=== PATIENT | female | born 1985 | race Caucasian/White ===

== ENCOUNTER 2020-10-10 11:23 | Emergency (ER) | payer OTHER, SELFPAY ==
[2020-10-10 11:25] VITALS: BP 134/87; PULSE 88; RESP 15; TEMP 36.3; O2SAT 100
--- NOTE | 2020-10-10 11:56 | ED.GENADULT ---
HPI - General Adult General Chief complaint: Dental/Oral Stated complaint: Tooth Infection, Face Swelling Time Seen by Provider: 10/10/20 11:26 Source: patient Mode of arrival: ambulatory Limitations: no limitations History of Present Illness HPI narrative: Patient presents for evaluation of left-sided facial pain. She states she was seen in urgent care and [place] several days ago and was advised to go to the ER for further evaluation. She received a prescription for amoxicillin. She did not have significant improvement in her symptoms so she returned to the ER at [place] on 10/03/20 received prescriptions for Augmentin, naproxen, hydrocodone. She states she continues to have pain left side of her face, radiating into her left ear. She has a history of tympanostomy tube placement and has a follow up with ENT in the next week. No f/c/n/v. States she has a hx of hysterectomy. Related Data Home Medications Medication Instructions Recorded Confirmed amoxicillin-pot clavulanate 1 tablet PO Q12H 10/10/20 [Augmentin] naproxen 500 mg PO BID 10/10/20 Allergies Allergy/AdvReac Type Severity Reaction Status Date / Time Sulfa (Sulfonamide Allergy Mild HIVES Verified 04/09/18 10:26 Antibiotics) Review of Systems Review of Systems: Narrative: CONSTITUTIONAL: Denies fever, chills, or sweats. EYES: Denies visual changes, redness, or discharge. ENT: Denies rhinorrhea, congestion, sore throat. Reports left-sided dental pain with radiation into the ear CARDIOVASCULAR: Denies chest pain, palpitations, or edema. RESPIRATORY: Denies cough or dyspnea. GASTROINTESTINAL: Denies abdominal pain, nausea, vomiting, or diarrhea. GENITOURINARY: Denies dysuria or hematuria. SKIN: Denies rash or itching. MUSCULOSKELETAL: Denies back pain, joint pain, or myalgia. NEUROLOGIC: Denies headache, numbness, dizziness, or weakness. PSYCHIATRIC: Denies anxiety or depression. [facility] Past Medical History Medical History (Updated 10/10/20 @ 12:02 by Gordon Mckoy, BHAVNA, BETTINA) Recurrent otitis media Surgical History Surgical History History of tympanostomy tube placement Family History Family History Mother No pertinent family history Social History Social History Substance use: never Gender identity (if verbalized by the patient): Female Sexual Orientation (if Verbalized by the Patient): Straight or Heterosexual Spiritual care concerns: No Exam Narrative: Exam Narrative: GENERAL: Well-appearing, well-nourished, and in no acute distress. HEAD: Normocephalic, atraumatic. EYES: PERRLA and EOMI. ENT: Nares clear, no rhinorrhea or epistaxis. Mucous membranes moist. Oropharynx without tonsillar hypertrophy exudate or other lesions. Bilateral TMs pearly mckeon nonbulging. Tooth #18 is fractured there is no visible or palpable abscess present. Left tympanostomy tube is intact NECK: Supple. No adenopathy or masses. No carotid bruits or JVD CHEST: Clear to auscultation. No respiratory distress. No wheezes rales or rhonchi HEART: Regular rate and rhythm. No murmur heard. Normal peripheral pulses. ABDOMEN: Soft, nontender, nondistended, normal active bowel sounds. EXTREMITIES: Normal range of motion. No edema. SKIN: Warm, dry, no rash. NEURO: No focal deficits. Alert and oriented x3. PSYCH: Normal mood and affect. Course Course Emergency Course: This is a 34-year-old female that presented with left-sided dental pain with radiation to the ear. She has been on several courses of antibiotics. Of note on her exam there is no evidence of dental abscess. She does have a fracture of tooth #18. Vital signs were stable. Plans to change antibiotic to clindamycin. She completed her hydrocodone. We will give small quantity of tramadol. Advised continued u
== END 2020-10-10 12:12 | disposition home or self-care (01) ==
PROVIDERS: Emergency Provider Nurse Practitioner
DX: K03.81 Cracked tooth (principal)
CPT/HCPCS: 99283

== ENCOUNTER 2020-10-14 17:39 | Emergency (ER) | payer OTHER, SELFPAY ==
[2020-10-14 18:42] VITALS: BP 124/84; PULSE 83; RESP 16; TEMP 36.4; O2SAT 100
[2020-10-14 20:38] VITALS: BP 104/46; PULSE 89; RESP 16; O2SAT 100
[2020-10-14 20:50] LABS: Basophils Absolute Auto 0.1 K/mm3 (0.0-0.1); Basophils Percent Auto 0.8 % (0.2-1.2); Eosinophils Absolute Auto 0.3 K/mm3 (0-0.3); Eosinophils Percent Auto 2.5 % (0-4.4); Hematocrit 38.5 % (37.0-47.0); Hemoglobin 12.7 g/dL (12.0-15.0); Immature Granulocyte Absolute 0.03 K/mm3 (0.00-0.031); Immature Granulocyte Percent A 0.3 % (0-0.5); Lymphocytes Percent Auto 45.7 % (18.3-44.2); Mean Corpuscular Hemoglobin 31.1 pg (26-34); Mean Corpuscular Volume 94.4 fl (80-100); Mean Platelet Volume 10.4 fl (7.4-10.4); Monocytes Absolute Auto 0.7 K/mm3 (0.1-0.6); Monocytes Percent Auto 6.3 % (2.6-8.5); Neutrophils Percent Auto 44.4 % (45.5-73.1); Platelet Count Result 257 k/mm3 (150-375); Red Blood Count 4.08 M/mm3 (4.2-5.4); Red Cell Distribution Width 13.2 % (11.5-14.5); White Blood Count 11.2 K/mm3 (4.5-10.0)
[2020-10-14 21:02] LABS: Alanine Aminotransferase 11 U/L (4-35); Albumin Level 4.3 g/dL (3.5-5.1); Alkaline Phosphatase 58 U/L (38-126); Anion Gap 5 mmol/L (8-16); Aspartate Amino Transferase 25 U/L (14-36); Bilirubin,Total < 0.1 mg/dL (0.2-1.3); Blood Urea Nitrogen 15 mg/dL (7-17); Carbon Dioxide 29 mmol/L (22-30); Chloride 106 mmol/L (98-107); Estimated CRCL calculation 82 ml/min; Estimated Glomerular Filt Rate > 60; Glucose 94 mg/dL (65-105); Sodium 140 mmol/L (137-145)
[2020-10-14 21:04] LABS: Platelet Estimate Adequate (Adequate)
[2020-10-14 21:05] LABS: Atypical Lymphocytes Present
--- NOTE | 2020-10-14 21:53 | ED.DENTAL ---
HPI - Dental/Oral General Chief complaint: Dental/Oral Stated complaint: dental pain, facial swelling Time Seen by Provider: 10/14/20 21:05 Source: patient Mode of arrival: ambulatory Limitations: no limitations History of Present Illness HPI Narrative: Patient is a 34-year-old female complaining of left lower dental pain accompanied by left facial swelling that started this morning and now has decreased remarkably and almost resolved. Patient states that she has been on 3 rounds of antibiotics due to her dental pain and facial swelling. Patient states that she saw a dentist last week and was told that she needs oral surgeon, states that she has been trying to look for 1 by unable to find one. Patient denies any lip, tongue, throat swelling. Patient denies any dysphagia. Patient currently on clindamycin for her dental infection. Related Data Home Medications Medication Instructions Recorded Confirmed amoxicillin-pot clavulanate 1 tablet PO Q12H 10/10/20 [Augmentin] naproxen 500 mg PO BID 10/10/20 Allergies Allergy/AdvReac Type Severity Reaction Status Date / Time Sulfa (Sulfonamide Allergy Mild HIVES Verified 04/09/18 10:26 Antibiotics) Review of Systems Review of Systems: All systems reviewed & are unremarkable except as noted in HPI and below Constitutional: Constitutional: Denies body ache(s), Denies chills, Denies excessive sweating, Denies fatigue, Denies fever(s), Denies headache(s), Denies lethargy, Denies malaise, Denies weakness and Denies weight loss Eyes: Eyes: Denies blurry vision, Denies change in vision and Denies loss of vision ENT: Denies dizziness, Denies ear discharge, Denies headache(s), Denies lip swelling, Denies epistaxis, Denies nasal congestion, Denies neck pain, Denies throat swelling and Denies tongue swelling Cardiovascular: Cardiovascular: Denies chest pain, Denies chest pain at rest, Denies chest pain with activity, Denies diaphoresis, Denies rapid heart rate, Denies edema, Denies irregular heart rhythm, Denies lightheadedness, Denies palpitations, Denies dyspnea and Denies dyspnea on exertion Respiratory: Respiratory: Denies chest congestion, Denies cough, Denies hemoptysis, Denies dyspnea and Denies dyspnea on exertion Gastrointestinal: Gastrointestinal: Denies abdominal pain, Denies melena, Denies hematochezia, Denies diarrhea, Denies nausea, Denies vomiting and Denies hematemesis Musculoskeletal: Musculoskeletal: Denies abnormal gait, Denies deformity, Denies joint swelling, Denies limited range of motion, Denies neck pain and Denies numbness Neurologic: Denies Abnormal speech present, Denies abnormal gait, Denies confusion, Denies dizziness, Denies headache(s), Denies focal weakness, Denies loss of vision, Denies numbness, Denies Other visual disturbances, Denies Sensory deficit (Neuro) and Denies weakness Psychiatric: Psychiatric: Denies confusion, Denies depression, Denies auditory hallucinations, Denies homicidal ideation and Denies suicidal ideation Endocrine: Endocrine: Denies cold intolerance, Denies excessive sweating, Denies fatigue, Denies heat intolerance and Denies palpitations Hematologic/Lymphatic: Hematologic/Lymphatic: Denies easy bleeding and Denies easy bruising Allergic/Immunologic: Allergic/Immunologic: Denies lip swelling, Denies throat swelling and Denies tongue swelling [facility] Past Medical History Medical History Recurrent otitis media Surgical History Surgical History History of tympanostomy tube placement Family History Family History Mother No pertinent family history Social History Social History Substance use: never Gender identity (if verbalized by the patient): Female Spiritual care concerns: No Exam Const: G
[2020-10-14 22:22] VITALS: BP 118/79; PULSE 84; RESP 16; TEMP 36.7; O2SAT 98
== END 2020-10-14 22:23 | disposition home or self-care (01) ==
PROVIDERS: Emergency Medicine Emergency Medical Services; Emergency Provider Emergency Medicine; PCP Physician Assistant
DX: K04.7 Periapical abscess without sinus (principal)
CPT/HCPCS: 36415; 80053; 85025; 99283

== ENCOUNTER 2021-02-10 14:56 | Emergency (ER) | payer OTHER, SELFPAY ==
--- NOTE | ~2021-02-10 | CT_ITS ---
EXAMINATION: CT brain wo con DATE: 02/10/2021 16:52 INDICATION: Headache. TECHNIQUE: Computed tomography (CT) of the head was performed without intravenous contrast. The mA wa s adjusted according to patient size. Iterative reconstruction technique was employed. The dose-lengt h product was 681.00 mGy-cm. COMPARISON: None FINDINGS: There is no intracranial hemorrhage, acute infarction, or abnormal intracranial mass lesion . The ventricles are normal in size. The orbits are normal. There is mucosal thickening in the parana bev sinuses. The mastoid air cells are normal. IMPRESSION: 1. Normal brain. Reviewed, dictated and finalized at location A. IMPRESSION: 1. Normal brain.
[2021-02-10 16:12] VITALS: BP 116/65; PULSE 79; RESP 20; TEMP 37.4; O2SAT 100
--- NOTE | 2021-02-10 16:49 | ED.HA ---
HPI - Headache General Chief Complaint: Headache <BOBBY Montalvo Last Filed: 02/10/21 18:46> Stated Complaint: HEADACHE [id number] <BOBBY Montalvo Last Filed: 02/10/21 18:46> Time Seen by Provider: 02/10/21 16:20 <BOBBY Montalvo Last Filed: 02/10/21 18:46> Source: patient <BOBBY Montalvo Last Filed: 02/10/21 18:46> Mode of arrival: EMS <BOBBY Montalvo Last Filed: 02/10/21 18:46> Limitations: no limitations <BOBBY Montalvo Last Filed: 02/10/21 18:46> History of Present Illness HPI Narrative: This is a 35 year old female that presents to the ER for headache present x1 week. Reports the headache is frontal and sharp. She has been taking [id number] medications with little relief. Associated with photophobia and vomiting. Denies fever, stiff neck, numbness, or weakness. <BOBBY Montalvo Last Filed: 02/10/21 18:46> Related Data Home Medications: Home Medications Medication Instructions Recorded Confirmed amoxicillin-pot clavulanate 1 tablet PO Q12H 10/10/20 [Augmentin] naproxen 500 mg PO BID 10/10/20 <BOBBY Montalvo Last Filed: 02/10/21 18:46> Allergies/Adverse Reactions: Allergies Allergy/AdvReac Type Severity Reaction Status Date / Time Sulfa (Sulfonamide Allergy Mild HIVES Verified 04/09/18 10:26 Antibiotics) <BOBBY Montalvo Last Filed: 02/10/21 18:46> Review of Systems Review of Systems: CONSTITUTIONAL: Denies fever EYES: Denies visual changes GASTROINTESTINAL: Reports vomiting MUSCULOSKELETAL: Reports myalgia. NEUROLOGIC: Reports headache. Denies numbness, or weakness. <BOBBY Montalvo Last Filed: 02/10/21 18:46> All systems reviewed & are unremarkable except as noted in HPI and below <BOBBY Montalvo Filed: 02/10/21 18:46> [facility] Past Medical History Medical History: Medical History Recurrent otitis media <Barbara Menjivar PA-C - Last Filed: 02/10/21 18:46> Surgical History Surgical History: Surgical History History of tympanostomy tube placement <BOBBY Montalvo Last Filed: 02/10/21 18:46> Family History Family History: Family History Mother No pertinent family history <BOBBY Montalvo Last Filed: 02/10/21 18:46> Social History Social History: Social History Substance use: never Gender identity (if verbalized by the patient): Female Spiritual care concerns: No <BOBBY Montalvo Last Filed: 02/10/21 18:46> Exam Narrative: GENERAL: Well-appearing, well-nourished, and in no acute distress. HEAD: Normocephalic, atraumatic. EYES: PERRLA and EOMI. ENT: Nares clear, no rhinorrhea or epistaxis. Mucous membranes moist. Oropharynx without tonsillar hypertrophy exudate or other lesions. Right TM pearly mckeon non-bulging. Left TM with tympanostomy tube in place NECK: Supple. No adenopathy or masses. CHEST: Clear to auscultation. No respiratory distress. No wheezes rales or rhonchi HEART: Regular rate and rhythm. No murmur heard. Normal peripheral pulses. EXTREMITIES: Normal range of motion. No edema. Strength equal in bilateral upper and lower extremities (5/5) SKIN: Warm, dry, no rash. NEURO: No focal deficits. Alert and oriented x3. Cranial nerves II through XII grossly intact PSYCH: Normal mood and affect <BOBBY Montalvo Last Filed: 02/10/21 18:46> Course Vital Signs Vital signs: Vital Signs Temperature 37.4 C 02/10/21 16:12 Pulse Rate 79 02/10/21 16:12 Respiratory Rate 20 02/10/21 16:12 Blood Pressure 116/65 02/10/21 16:12 Pulse Oximetry 100 02/10/21 16:12 Temperature 37.4 C 02/10/21 16:12 Pulse Rate 79 0
[2021-02-10] MEDS: SODIUM CHLORIDE 0.9% IV 1,000 ML 999 ML IV CONT (17:20)
[2021-02-10] MEDS: METOCLOPRAMIDE HCL INJ 10 MG/2 ML VIAL IV PUSH (17:20)
[2021-02-10] MEDS: diphenhydrAMINE HCl INJ 50 MG/ML VIAL 25 MG IV PUSH (17:20)
[2021-02-10] MEDS: KETOROLAC 30 MG/ML VIAL (*BKC) (17:20)
--- NOTE | 2021-02-17 10:38 | PC.NURSE ---
LATE ENTRY This note is being entered to document information to the patient's record. The following information was omitted on [02/10/2021], by [Javi Gonzalez] DEMARIO stop time 1900.
== END 2021-02-10 19:20 | disposition home or self-care (01) ==
PROVIDERS: Emergency Provider Emergency Medicine; PCP Physician Assistant
DX: G43.909 Migraine, unspecified, not intractable, without status migrainosus (principal)
CPT/HCPCS: 70450; 96361; 96365; 96375; 99284; J0131; J1200; J1885; J2765; J7030

== ENCOUNTER 2022-01-04 09:50 | Emergency (ER) | payer OTHER, SELFPAY ==
--- NOTE | ~2022-01-04 | US_ITS ---
EXAMINATION: US pelvic complete w TV DATE: 01/04/2022 12:21 INDICATION: Hydrosalpinx. TECHNIQUE: Multiple transabdominal and transvaginal sonographic images of the pelvis were obtained. COMPARISON: CT abdomen and pelvis 01/04/2022 FINDINGS: TRANSABDOMINAL ULTRASOUND: The uterus is absent. There is no free fluid in the pelvis. TRANSVAGINAL ULTRASOUND: The right ovary measures 3.0 x 2.3 x 2.3 cm. The left ovary measures 2.7 x 3.8 x 2.3 cm. There is nor mal vascular flow in the ovaries. There is bilateral hydrosalpinx. IMPRESSION: 1. Absent uterus. 2. Bilateral hydrosalpinx. Reviewed, dictated and finalized at location A.
--- NOTE | ~2022-01-04 | CT_ITS ---
EXAMINATION: CT abdomen pelvis w con DATE: 01/04/2022 11:36 INDICATION: Right lower quadrant abdominal pain. TECHNIQUE: Computed tomography (CT) of the abdomen and pelvis was performed with 100 mL Omnipaque-300 intravenous contrast. Automated exposure control and iterative reconstruction technique were employe d. The dose-length product was 946.29 mGy-cm. COMPARISON: None FINDINGS: Lung bases are clear. Heart size is normal. No pericardial or pleural effusion. Focal hepatic steatos is along the ligamentum teres. Gallbladder, spleen, pancreas, bilateral adrenal glands and kidneys ar e normal. Bowels including the appendix are normal. Bladder is normal. The uterus is not identified a nd has likely been surgically resected. Small fluid attenuation structure at the bilateral adnexa whi ch could represent either multiple small bilateral adnexal cysts, hydrosalpinx or combination thereof . Minimal likely physiologic free fluid in the cul-de-sac. No abscess or free intraperitoneal gas. No pathologically enlarged abdominal or pelvic lymphadenopathy. Moderate lower thoracic and mild lumbar spondylosis with several small Schmorl's nodes. IMPRESSION: 1. Normal appendix. No acute intra-abdominal/pelvic process. 2. Small fluid attenuation structures at the bilateral adnexa which could represent small adnexal cys ts, hydrosalpinx or combination thereof. Reviewed, dictated and finalized at location A. IMPRESSION: 1. Normal appendix. No acute intra-abdominal/pelvic process. 2. Small fluid attenuation structures at the bilateral adnexa which could repre sent small adnexal cysts, hydrosalpinx or combination thereof.
--- NOTE | ~2022-01-04 | CT_ITS ---
EXAMINATION: CT brain wo con DATE: 01/04/2022 11:35 INDICATION: Headaches and dizziness TECHNIQUE: Computed tomography (CT) of the head was performed without intravenous contrast. Sagittal and coronal reconstructions were performed. The mA was adjusted according to patient size. Iterative reconstruction technique was employed. The dose-length product was 605.33 mGy-cm. COMPARISON: head CT dated 02/10/2021 FINDINGS: No acute intracranial hemorrhage, acute infarction or abnormal extra axial fluid collection. Ventricl es are normal and symmetric. No mass/mass effect. The orbits, paranasal sinuses and mastoid air cells are normal. IMPRESSION: 1. Normal head CT. Reviewed, dictated and finalized at location A. IMPRESSION: 1. Normal head CT.
[2022-01-04 09:57] VITALS: BP 156/81; PULSE 97; RESP 20; TEMP 36.4; O2SAT 100
--- NOTE | 2022-01-04 10:02 | ED.ABDPAIN ---
HPI - Abdominal Pain General Chief Complaint: Abdominal Pain Stated Complaint: abd pain/vomitting/headaches/dizziness Time Seen by Provider: 01/04/22 10:01 History of Present Illness HPI narrative: Patient is a 36-year-old previously healthy female presenting to the emergency department for evaluation of abdominal pain, nausea, intermittent lightheadedness and dizziness. Patient states that she has felt unwell over the past 48 hours with intermittent, sharp lower abdominal pain that also radiates into her right upper quadrant and middle back. Patient denies any current chest pain, shortness of breath, palpitations. She denies fever, chills, reports nausea and morning episodes of emesis. Patient states she has had decreased oral intake secondary to her symptoms. Chest reports intermittent dizziness that is not necessarily positional but denies vision changes, unilateral weakness or numbness. She has been ambulatory without difficulty. Patient states it has been many years since she has been seen by a primary care physician. Patient does report history of hysterectomy in the past, no known history of appendectomy, denies history of gallbladder issues in the past. She denies any dysuria, hematuria. Related Data Home Medications Medication Instructions Recorded Confirmed amoxicillin 875 mg-potassium 1 tablet PO Q12H 10/10/20 clavulanate 125 mg tablet (Augmentin) naproxen 500 mg tablet 500 mg PO BID 10/10/20 Allergies Allergy/AdvReac Type Severity Reaction Status Date / Time Sulfa (Sulfonamide Allergy Mild HIVES Verified 04/09/18 10:26 Antibiotics) Review of Systems Review of Systems: CONSTITUTIONAL: Denies fever, chills, or sweats. EYES: Denies visual changes, redness, or discharge. ENT: Denies rhinorrhea, congestion, sore throat; pt does report left ear pain. CARDIOVASCULAR: Denies chest pain, palpitations, or edema. RESPIRATORY: Denies cough or dyspnea. GASTROINTESTINAL: Reports abdominal pain, nausea and vomiting GENITOURINARY: Denies dysuria or hematuria. SKIN: Denies rash or itching. MUSCULOSKELETAL: Denies back pain, joint pain, or myalgia. NEUROLOGIC: Denies headache, numbness, or weakness. Reports intermittent dizziness. [facility] Past Medical History Medical History Recurrent otitis media Surgical History Surgical History History of tympanostomy tube placement Family History Family History Mother No pertinent family history Social History Social History (Updated 01/04/22 @ 11:18 by Nellie Aceves MD) Smoking status: Current every day smoker Alcohol intake: current Alcohol use details: social Substance use: current Substance use type: marijuana Gender identity (if verbalized by the patient): Female Sexual Orientation (if Verbalized by the Patient): Straight or Heterosexual Spiritual care concerns: No Exam Narrative: GENERAL: Awake, alert, conversant HEAD: Normocephalic, atraumatic. EYES: PERRLA and EOMI. ENT: Nares clear, no rhinorrhea or epistaxis. Mucous membranes moist. Right ear is normal-appearing without bulging, erythema or edema. Left tympanic membrane is perforated with fluid present, no purulent discharge present currently. No evidence of otitis externa. NECK: Supple. CHEST: No respiratory distress, breathing even and non labored HEART: Borderline tachycardic rate, sinus rhythm ABDOMEN:Non distended, right lower quadrant tenderness with guarding present, left lower quadrant tenderness present, positive suprapubic tenderness, no epigastric tenderness, positive right upper quadrant tenderness, hypoactive bowel sounds throughout Pelvic exam: Labia majora and minora normal without lesions. Vagina without blood. No cervical motion tenderness. There is adnexal tenderness bilaterally. Normal mucoid di
[2022-01-04 10:23] LABS: Basophils Absolute Auto 0.1 K/mm3 (0.0-0.1); Basophils Percent Auto 0.7 % (0.2-1.2); Eosinophils Absolute Auto 0.1 K/mm3 (0-0.3); Eosinophils Percent Auto 0.6 % (0-4.4); Hematocrit 40.9 % (37.0-47.0); Hemoglobin 13.5 g/dL (12.0-15.0); Immature Granulocyte Absolute 0.08 K/mm3 (0.00-0.031); Immature Granulocyte Percent A 0.5 % (0-0.5); Lymphocytes Absolute Auto 4.28 K/mm3 (0.9-3.2); Mean Corpuscular Hemoglobin 31.8 pg (26-34); Mean Corpuscular Volume 96.5 fl (80-100); Mean Platelet Volume 10.2 fl (7.4-10.4); Monocytes Absolute Auto 0.7 K/mm3 (0.1-0.6); Monocytes Percent Auto 3.8 % (2.6-8.5); Neutrophils Absolute Auto 11.9 K/mm3 (1.3-6.7); Neutrophils Percent Auto 69.4 % (45.5-73.1); Platelet Count Result 286 k/mm3 (150-375); Red Blood Count 4.24 M/mm3 (4.2-5.4); Red Cell Distribution Width 13.2 % (11.5-14.5); White Blood Count 17.1 K/mm3 (4.5-10.0)
[2022-01-04 10:28] LABS: Appearance Urine Clear (Clear); Bilirubin Urine Negative (Negative); Blood Urine Negative (Negative); Color Urine Yellow (Yellow); Glucose Urine UA Negative (Negative); Ketones Urine Negative (Negative); Leukocyte Esterase Ur Negative LEU/UL (Negative); Nitrate Urine Negative (Negative); Protein Urine Negative (Negative); Urobilinogen Urine 0.2 mg/dL (<2.0)
[2022-01-04 10:30] LABS: Add Urine Microscopic? NO
[2022-01-04 10:35] LABS: Alanine Aminotransferase 10 U/L (6-35); Albumin Level 4.2 g/dL (3.5-5.1); Alkaline Phosphatase 69 U/L (38-126); Anion Gap 5 mmol/L (8-16); Aspartate Amino Transferase 20 U/L (14-36); Bilirubin,Total 0.3 mg/dL (0.2-1.3); Blood Urea Nitrogen 12 mg/dL (7-17); Calcium 8.5 mg/dL (8.4-10.2); Carbon Dioxide 25 mmol/L (22-30); Chloride 108 mmol/L (98-107); Estimated Glomerular Filt Rate > 60; Glucose 98 mg/dL (65-110); Lipase 67 U/L (23-300); Potassium 4.1 mmol/L (3.4-5.0); Sodium 138 mmol/L (137-145)
[2022-01-04] MEDS: ONDANSETRON INJ 4 MG/2 ML VIAL IV PUSH (10:51)
[2022-01-04] MEDS: SODIUM CHLORIDE 0.9% IV 1,000 ML 999 ML IV CONT (10:52)
[2022-01-04] MEDS: MORPHINE SULFATE (*CRX) 4 MG/ML INJ IV PUSH (11:41)
[2022-01-04] MEDS: oxyCODONE/ACETAMINOPHEN (*CRX) 5-325 MG TABLET 1 TABLET PO (13:08)
[2022-01-04] MEDS: cefTRIAXone 1 GM VIAL IM (13:51)
[2022-01-04] MEDS: LIDOCAINE HCL 1% LOCAL INJ 20 ML VIAL (13:57)
[2022-01-04 14:35] VITALS: BP 107/69; PULSE 66; RESP 16; O2SAT 100
[2022-01-04 14:55] VITALS: BP 103/66; PULSE 58; RESP 14; O2SAT 100
== END 2022-01-04 15:30 | disposition home or self-care (01) ==
PROVIDERS: Emergency Provider Emergency Medicine; PCP Physician Assistant
DX: N70.11 Chronic salpingitis (principal); H66.92 Otitis media, unspecified, left ear; H72.92 Unspecified perforation of tympanic membrane, left ear; F17.200 Nicotine dependence, unspecified, uncomplicated
CPT/HCPCS: 36415; 70450; 74177; 76830; 76856; 80053; 81003; 83690; 85025; 87070; 87491; 87591; 87808; 96361; 96372; 96374; 96375; 99284; A9270; J0696; J2270; J2405; J7030; Q9967

== ENCOUNTER 2023-10-26 11:59 | Emergency (ER) | payer OTHER, SELFPAY ==
[2023-10-26 12:00] VITALS: BP 152/99; PULSE 100; RESP 16; TEMP 36.5; O2SAT 100
[2023-10-26 13:04] LABS: Basophils Absolute Auto 0.1 K/mm3 (0.0-0.1); Basophils Percent Auto 0.8 % (0.2-1.2); Eosinophils Absolute Auto 0.1 K/mm3 (0-0.3); Eosinophils Percent Auto 0.7 % (0-4.4); Hematocrit 43.5 % (37.0-47.0); Hemoglobin 14.8 g/dL (12.0-15.0); Immature Granulocyte Absolute 0.03 K/mm3 (0.00-0.031); Immature Granulocyte Percent A 0.3 % (0-0.5); Lymphocytes Absolute Auto 2.52 K/mm3 (0.9-3.2); Lymphocytes Percent Auto 26.2 % (18.3-44.2); Mean Corpuscular Hemoglobin 36.4 pg (26-34); Mean Corpuscular Volume 106.9 fl (80-100); Mean Platelet Volume 10.4 fl (7.4-10.4); Monocytes Absolute Auto 0.6 K/mm3 (0.1-0.6); Monocytes Percent Auto 6.2 % (2.6-8.5); Neutrophils Absolute Auto 6.3 K/mm3 (1.3-6.7); Neutrophils Percent Auto 65.8 % (45.5-73.1); Platelet Count Result 239 k/mm3 (150-375); Red Blood Count 4.07 M/mm3 (4.2-5.4); Red Cell Distribution Width 14.1 % (11.5-14.5); White Blood Count 9.6 K/mm3 (4.5-10.0)
[2023-10-26 13:06] VITALS: BP 136/81; PULSE 81; RESP 16; O2SAT 96
[2023-10-26 13:12] LABS: Ethanol < 10 mg/dL (<10)
[2023-10-26 13:15] LABS: Partial Thromboplastin Time 23.8 Seconds (22.3-36.8); Prothrombin Time 13.1 Seconds (11.1-14.7)
[2023-10-26 13:23] LABS: Alanine Aminotransferase 85 U/L (6-35); Albumin Level 4.2 g/dL (3.5-5.1); Alkaline Phosphatase 89 U/L (38-126); Anion Gap 4 mmol/L (4-12); Aspartate Amino Transferase 238 U/L (14-36); Bilirubin,Total 1.2 mg/dL (0.2-1.3); Blood Urea Nitrogen 8 mg/dL (7-17); Calcium 9.8 mg/dL (8.4-10.2); Carbon Dioxide 29 mmol/L (22-30); Chloride 106 mmol/L (98-107); Estimated CRCL calculation 98 ml/min; Estimated Glomerular Filt Rate > 60; Glucose 101 mg/dL (65-110); Potassium 3.5 mmol/L (3.4-5.0); Sodium 139 mmol/L (137-145)
[2023-10-26 13:24] LABS: Platelet Estimate Adequate (Adequate); Schistocytes None Seen
[2023-10-26 13:25] LABS: Anisocytosis 1+; Macrocytosis 1+ (NORMAL)
[2023-10-26 13:32] VITALS: BP 140/88; PULSE 83; RESP 14; O2SAT 100
[2023-10-26 14:02] VITALS: BP 136/81; PULSE 73; RESP 21; O2SAT 96
--- NOTE | 2023-10-26 14:25 | ED.NAVMDI ---
HPI - Nausea/Vomiting/Diarrhea General Chief complaint: Nausea/Vomiting/Diarrhea Stated complaint: hematuria Time Seen by Provider: 10/26/23 12:51 History of Present Illness HPI Narrative: Patient is a 37-year-old female who presents ER with concerns for hematemesis. Patient reports that she woke up this morning and had some vomiting. She then took a shot of alcohol and then vomited again. She developed bright red blood that was liquid and not thickened when she vomited this occurred twice. The 2nd episode of emesis was small in volume. She has had noted black tarry stools. She denies fevers or chills or sweats. No history of upper GI bleed in the past. She is on no blood thinning medications. Related Data Home Medications Medication Instructions Recorded Confirmed naproxen 500 mg tablet 500 mg PO BID 10/10/20 02/08/22 Allergies Allergy/AdvReac Type Severity Reaction Status Date / Time Sulfa (Sulfonamide Allergy Mild HIVES Verified 02/08/22 09:29 Antibiotics) Review of Systems Review of Systems: All systems reviewed & are unremarkable except as noted in HPI and below Constitutional: Constitutional: Reports no additional constitutional complaints ENT: Reports system reviewed and no additional complaints, except as documented Cardiovascular: Cardiovascular: Reports no additional cardiovascular complaints Respiratory: Respiratory: Reports no additional respiratory complaints Gastrointestinal: Gastrointestinal: Denies abdominal pain, Denies diarrhea, Reports nausea and Reports vomiting Genitourinary: Genitourinary: Reports no additional female genitourinary complaints [facility] Past Medical History Medical History History of 1 History of vaginal delivery x3 Recurrent otitis media Surgical History Surgical History History of hysterectomy History of tonsillectomy History of tympanostomy tube placement Family History Family History Mother No pertinent family history Grandparent Heart disease Stomach cancer Father Diabetes mellitus Social History Social History (Updated 02/08/22 @ 09:32 by Tiera Kamara) Social History: Caffeine-daily coffee Years smoked: 23 Smoking status: Current every day smoker Tobacco type: cigarettes Alcohol intake: current Alcohol use details: social Substance use: current Substance use type: marijuana Gender identity (if verbalized by the patient): Female Sexual Orientation (if Verbalized by the Patient): Straight or Heterosexual Spiritual care concerns: No Exam Narrative: GENERAL: Well-appearing, well-nourished, and in no acute distress. HEAD: Normocephalic, atraumatic. EYES: PERRL and EOMI. ENT: Mucous membranes moist. NECK: Supple. CHEST: Clear to auscultation. No respiratory distress. HEART: Regular rate and rhythm. Normal peripheral pulses. ABDOMEN: Soft, nontender, nondistended. guaiac negative stool on digital rectal exam. EXTREMITIES: Normal range of motion. No edema. SKIN: Warm, dry, no rash. NEURO: Alert and oriented x3. PSYCH: Normal mood and affect. Course Course Emergency Course: Alcohol level undetectable. Hemoglobin normal. No hypotension. No recurrent emesis. Rectal exam negative for occult blood. Patient may have had hemorrhagic gastritis or small Brie-Yepez tear. Patient given reassurance. Will start on PPI. Transaminases elevated and we consistent with alcohol abuse. Vital Signs Vital signs: Vital Signs Temperature 97.7 F 10/26/23 12:00 Pulse Rate 100 10/26/23 12:00 Respiratory Rate 16 10/26/23 12:00 Blood Pressure 152/99 H 10/26/23 12:00 Pulse Oximetry 100 10/26/23 12:00 Oxygen Delivery Room Air 10/26/23 12:00 Temperature 97.7 F 10/26/23 12:00 Pulse Rate 81 10/26/23 13:06 Respiratory Rate 16
[2023-10-26 14:32] VITALS: BP 126/74; PULSE 90; RESP 17; O2SAT 100
[2023-10-26 15:02] VITALS: BP 139/94; PULSE 90; RESP 20; O2SAT 98
--- NOTE | 2023-10-26 15:10 | PCCCNOTE ---
CC called to the ED to talk to pt and give resources for alcohol withdrawal. Gave pt Marc, with [facility]. She will contact them.
== END 2023-10-26 15:10 | disposition home or self-care (01) ==
PROVIDERS: Emergency Provider Emergency Medicine; Referring Provider Family Medicine
DX: K92.0 Hematemesis (principal); F17.210 Nicotine dependence, cigarettes, uncomplicated; Z90.710 Acquired absence of both cervix and uterus
CPT/HCPCS: 36415; 80053; 80307; 85025; 85610; 85730; 86850; 86900; 86901; 99283

== ENCOUNTER 2024-12-26 14:29 | Emergency (ER) | payer OTHER, SELFPAY ==
--- OUTSIDE RECORDS SUMMARY | 2024-12-26 14:32 | XMS_ITS | Clinical Summary ---
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 Hx Other Medical tubes in ears Depression Depression Family History Medical History Relation Name Comments Alcohol abuse Other 1 Family history of Alcoholism; Cancer Other 2 Family history of Cancer; Diabetes Other 3 Family history of Diabetes mellitus; Heart disease Other 4 Family history of Heart disease; Hypertension Other 5 Family history of Hypertension; Osteoarthritis Other 6 Family histor y of Osteoarthritis; Relation Name Status Comments Other 1 Other 2 Other 3 Other 4 Other 5 Other 6 Social History Tobacco Use Types Packs/Day Years Used Date Smoking Tobacco: Every Day Cigarettes Smokeless Tobacco: Never Comments:Smoking History Pac ks/day: 0.5 Packs Alcohol Use Standard Drinks/Week Comments No 0 (1 standard drink = 0.6 oz pur e alcohol) Personal Safety Answer Date Recorded Have you ever been in or are you currently in a harmful physical or emotional relationship or is someone making you feel afraid or unsafe? Denies 06/28/2023 Comments No Sex and Gender Information Value Date Recorded Sex Assigned at Not on file Legal Sex Female 2:28 AM [employer]ITCH WHE[employer] Gender Identity Not on file Sexual Orientation Not on file Obstetrics History Last Filed Vital Signs Vital Sign Reading Time Taken Comments Blood Pressure 110/61 01/22/2024 8:00 AM CDT Pulse 70 01/22/2024 8:00 AM CDT Temperature 36.7 C (98 F) 01/22/2024 5:57 AM CDT Respiratory Rate 18 01/22/2024 5:57 AM CDT Oxygen Saturation 99% 01/22/2024 8:00 AM CDT Inhaled Oxygen Concentration - - Weight 103.9 kg (229 lb) 01/22/2024 5:57 AM CDT Height 162.6 cm (5' 4) 01/22/2024 5:57 AM CDT Body Mass Index 39.31 01/22/2024 5:57 AM CDT Plan of Treatment Health Maintenance Due Date Last Done Comments Depression Screening 1985 Hepatitis C Screening 1985 Varicella Vaccines (1 of 2 - 13+ 2-dose series) 1998 DTaP/Tdap/Td Vaccine (5 - Tdap) 01/18/2001 01/17/2001, 01/10/1991, 03/17/1988, Additional history exists Regular Well Visit/Exam 18-64 01/01/2004 Pneumococcal vaccine <65 (1 of 2 - PCV) 2004 Influenza Vaccine (Season Ended) 2025 Hepatitis B Screening Completed 01/17/2001 HPV Vaccines Aged Out No longer eligi ble based on patient's age to complete this topic Insurance [facility] Care Teams 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
--- OUTSIDE RECORDS SUMMARY | 2024-12-26 14:32 | XMS_ITS | Data Portability ---
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 Lab chlamy karina tracho matis + neisse antonia gonorr hoeae + tricho monas vagina lis DNA panel, MARNIE+pr obe, unspec ified specim en 2022 023 [facility], [address] [place] [address], [address], [place], [address], 3 07:12:56 vitami n B12 + folate , serum or blood 2022 023 [facility], [address] [place] [address], [address], [place], [address], 3 17:38:40 CBC w/ auto diff 2022 023 [facility], [address] [place] [address], [address], [place], [address], 3 17:38:40 CMP, serum or plasma 2022 023 [facility], [address], [address], [place], [address], 3 17:38:40 urinal ysis, dipsti ck 2022 023 In-Office Order, Internal Use Only DO Not Attach Compendium DO Not Attach Compendium, Do Not Delete/merge, [id number] 3 17:38:40 cultur e, urine 2022 023 [facility], [address], [address], [place], [address], 3 06:44:19 HbA1c (hemog lobin A1c), blood 2022 023 [facility], [address], [address], [place], [address], 3 17:38:40 lipid panel, serum 2022 023 [facility], [address], [address], [place], [address], 3 17:38:40 SARS CoV 2 RNA (COVID -19), QL, 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, [place], [address], 1 17:06:54 rapid SARS CoV 2 Ag, QL IA, respir atory specim en 2020 021 [facility], [address], [place], [address], 1 17:12:49 Referral gyneco logic surger y referr al 2022 023 [facility], [address] [place], [address], 4 09:43:27 substa nce abuse rehabi litati on referr al 2022 023 [facility], [address] [place], [address], 3 12:51:23 psychi atrist referr al 2022 023 adelina Foss (), [address] [place], [address], 3 11:49:18 physic al therap ist referr al 2019 020 Not available 0 12:27:03 Procedures None record ed. Surgeries None record ed. Imaging US, pelvis , transa bdomin al + transv aginal - 1 month follow up of R ovaria n cysts and L hydros alpinx 2022 023 [facility] ([facility]), [address] [place], [address], 3 12:23:36 XR, should er, 2 or more view 2022 023 [email or web address] ([facility]), [address] [place], [address], 3 11:18:56 MRI, lumbar spine, w/o contra st 2019 020 [facility] ([facility]), [address] [place], [address], 0 12:27:03 MRI, cervic al spine, w/o contra st 2019 020 [facility] ([facility]), [address], [place], [address], 0 12:27:03 Medication Orders ondans etron 8 mg disint egrati ng tablet 2022 023 [id number], [address], [place], [place], [id number], 3 17:30:12 omepra zole 20 mg capsul e,yimi yed releas e 2022 023 [email or web address] [facility] #[id number], [address], [place], [place], [id number], 3 14:28:57 Augmen tin 875 mg-125 mg tablet 2022 023 [facility] #[id number], [address], [place], [place], [id number], 3 13:00:40 omepra zole 20 mg capsul e,yimi yed releas e 2022 023 [facility] #[id number], [address], [place], [place], [id number], 3 17:38:40 Patient TargetsNo targets recorded. Patient Instructions Encounter Date Encounter Id Patient Instructions Last Modified By Organization Details Last Modified Time 04/13/2020 [id number] sciatica: care instructions Not available 04/13/2020 12:18:16 learning about degenerative disc disease Not available 04/13/2020 12:34:16 back pain: care instructions Not available 04/13/2020 16:52:15 08/25/2022 [id number] A healthy lifestyle: care instructions Not available 08/25/2022 17:38:40 04/14/2023 [id number] Adrianna BUSBY, discussed case with Kaitlynn Winchester PA-C Discussed with Dr. Donovan melendez Not available 04/19/2023 14:19:06 Reason for Referral Physical Therapist Referral for Lumbar radiculopathy back pain Referring Physician: Chelsie Winchester, [facility], Encounter Date: 04/13/2020 Substance Abuse Rehabilitati on Referral for Harmful pattern of use of alcohol Referring Physician: Chelsie Winchester [facility], Encounter Date: 08/25/2022 Psychiatrist Referral for Ma octaviano depressive disorder PHQ Referring Physician: Chelsie Winchester [facility], Encounter Date: 08/25/2022 Gynecologic Surgery Referral for Complex cyst of right ovary diagnostic laparoscopy Referring Physician: Chelsie Winchester [facility], Encounter Date: 04/14/2023 Results Created Date Observation Date Name Description Value Unit Range Abnormal Flag Note LastModifiedBy Organization Detail LastModifiedTime 08/26/1908/25/2022 urina lysis , dipst ick Leukocytes Negati ve Not Available In-Office Order Internal Use Only DO Not Attach Compendium DO Not Attach Compendium, Do Not Delete/merge, [id number] 08/25/2022 16:10:31 08/26/1908/25/2022 urina lysis , dipst ick Nitrite negati ve Not Available In-Office Order Internal Use Only DO Not Attach Compendium DO Not Attach Compendium, Do Not Delete/merge, [id number] 08/25/2022 16:10:31 08/26/19 23 08/25/2022 urina lysis , dipst ick Urobilinogen .2 Not Available In-Of fice Order Internal Use Only DO Not Attach Compendium DO Not Attach Compendium, Do Not Delete/merge, [id number] 08/25/2022 16:10:31 08/26/19 23 08/25/2022 urina lysis , dipst ick Protein Negati ve Not Available In-Office Order Internal Use Only DO Not Attach Compendium DO Not Attach Compendium, Do Not Delete/merge, [facility] 08/25/2022 16:10:08/26/1908/25/2022 urina lysis , dipst ick pH 6.0 Not Available In-Office Order Internal Use Only DO Not Attach Compendium DO Not Attach Compendium, Do Not Delete/merge, [facility] 08/25/2022 16:10:08/26/19 23 08/25/2022 urina lysis , dipst ick Blood Non-He molyze d: Trace Not Available In-Office Order Internal Use Only DO Not Attach Compendium DO Not Attach Compendium, Do Not Delete/merge, [facility] 08/25/2022 16:10:08/26/1908/25/2022 urina lysis , dipst ick Specific [place] 1.010 Not Available In-Off ice Order Internal Use Only DO Not Attach Compendium DO Not Attach Compendium, Do Not Delete/merge, [facility] 08/25/2022 16:10:08/26/19 23 08/25/2022 urina lysis , dipst ick Ketone Negati ve Not Available In-Office Order Internal Use Only DO Not Attach Compendium DO Not Attach Compendium, Do Not Delete/merge, [facility] 08/25/2022 16:10:08/26/19 23 08/25/2022 urina lysis , dipst ick Bilirubin Negati ve Not Available In-Office Order Internal Use Only DO Not Attach Compendium DO Not Attach Compendium, Do Not Delete/merge, [facility] 08/25/2022 16:10:08/26/19 23 08/25/2022 urina lysis , dipst ick Glucose Negati ve Not Available In-Office Order Internal Use Only DO Not Attach Compendium DO Not Attach Compendium, Do Not Delete/merge, [facility] 08/25/2022 16:10:08/27/19 23 08/27/2022 URINE CULTU RE, ROUTI NE urine culture, routine FINAL REPORT Not Available [facility] ([facility]) [address], [place], [address], 08/28/2022 06:44:19 08/27/1908/27/2022 URINE CULTU RE, ROUTI NE result 1 COMMEN T Cultu re shows less than 10,00 0 colon y formi ng units of bacte antonia per aristeo liter of urine . This colon y count is not gener ally consi dered to be clini yariel signi fican t. Not Available [facility] ([facility]) [address] [place], [address], 08/28/2022 06:44:19 04/14/2004/18/2023 CT, NG, TRICH VAG BY MARNIE chlamydia by MARNIE Negati ve negati ve Not Available [facility] ([facility]) [address] [place], [address], 04/18/2023 07:12:56 04/14/2004/18/2023 CT, NG, TRICH VAG BY MARNIE gonococcus by MARNIE Negati ve negati ve Not Available [facility] ([facility]) [address] [place], [address], 04/18/2023 07:12:56 04/14/2004/18/2023 CT, NG, TRICH VAG BY MARNIE trich vag by MARNIE Positi ve negati ve abnormal Not Available [facility] ([facility]) [address] [place] [address], [address], 04/18/2023 07:12:56 04/03/2004/03/2020 XR, lumbo sacra l spine , 2 or 3 view No observ ation record ed. [facility] [address] [place], [address], 04/13/2020 12:05:17 04/03/20 20 04/03/2020 XR, cervi gutierrez spine , 2 or 3 view No observ ation record ed. [facility] [address] [place], [address], 04/13/2020 12:05:17 04/03/20 20 04/03/2020 XR, thora cic spine , 2 view No observ ation record ed. [email or web address] [address] [place], [address], 04/13/2020 12:05:17 02/13/20 21 02/10/2021 CT, brain , w/o contr ast No observ ation record ed. [address], [place], [address], 02/16/2021 15:49:27 01/12/20 22 01/04/2022 CT, abdom en + pelvi s, w/ contr ast No observ ation record ed. [email or web address] [address], [place], [address], 01/11/2022 10:10:33 04/12/20 23 04/12/2023 US, pelvi s, trans abdom inal + trans vagin al No observ ation record ed. Not Available 09:16:55 04/12/20 23 04/12/2023 CT, abdom en + pelvi s, w/ contr ast No observ ation record ed. Not Available 09:16:55 05/09/20 23 05/08/2023 US, pelvi s, trans abdom inal + trans vagin al No observ ation record ed. bogdan [facility] [address] [place], [address], 06/28/2023 17:32:46 06/29/19 XR, femur , 2 or more view No observ ation record ed. [email or web address] Not Available 06/29 17:25:52 06/29/19 24 06/28/2023 XR, knee, 1 or 2 view No observ ation record ed. [email or web address] Not Available 06/29 17:27:27 01/22/20 24 01/22/2024 XR, ribs, unila teral , w/ PA chest No observ ation record ed. [email or web address] Not Available 01/21 09:38:13 Result Notes None recorded. Problems Name Problem SNOMED Code Status Onset Date Resolution Date Notes Provider Name and Address Organization Details Recorded Time Pain in pelvis 73123686 Active Maggy hearn, [place] - [facility] 5 09:09:19 Condyloma acuminata of vulva 366871820 Active Maggy hearn, [place] - [facility] 5 09:09:19 Acute pelvic inflammatory disease 626625475 Active Roxann Franco [facility] Attn: Accountin g,[address], [place], [address], [facility] - [facility] 5 10:41:52 Nausea 677089501 Active Maggy hearn, [place] - [facility] 5 09:09:19 Pain of breast 14787299 Active Roxann Franco [facility] Attn: Accountin g,[address] [facility], [place], [address], [place] - [facility] 5 10:41:52 Problem Notes None recorded. Procedures Surgical History Date Name Laterality Status Provider Name and Address Organization Details Recorded Time 06/19/19 08 Total hysterectomy completed SARAH SERRA Attn: Accounting,[address] [facility], [place], [address], [facility] - [facility] 11/18/2019 15:48:54 Anesth knee area surgery completed Maggy Ramires [place] - [facility] 12/23/2014 12:07:39 Tonsillectomy completed Sherrie Dela Cruz [place] - [facility] 0 12/23/2014 14:38:41 Imaging Results None recorded. Procedure Notes None recorded. Medical Equipment None Reported. Allergies Allergen ID Allergen Name Allergen Category Reaction Reaction Severity Criticality Documentation Date Start Date Code Code System Note Provider Name and Address Organization Details Recorded Time 921690 Aleyda medicatio n hives severe Not available 11/18/2019 02863 6 RxNorm DAVID Ramos, [place] - [facility] 0 15:32:44 46279 Substance with sulfonami de structure and antibacte rial mechanism of action (substanc e) medicatio n hives severe Not available 12/23/2014 12240 8003 SNOMED Sherrie Dela Cruz [facility], [place] - [facility] 5 14:38:42 Medications Name Sig Start Date Stop Date Status Note LastModified by Organization Details LastModified Time cyclobenzap rine 10 mg tablet Take 1 tablet 3 times a day by oral route as needed. 02/17 completed Not Available Not Available Not Available amoxicillin 500 mg capsule TAKE 1 CAPSULE BY MOUTH EVERY 8 HOURS FOR 10 DAYS 02/17 completed Not Available Not Available Not Available Augmentin 875 mg-125 mg tablet Take 1 tablet every 12 hours by oral route for 7 days. 04/12 completed Not Available Not Available Not Available neomycin-po lymyxin-hyd rocort 3.5 mg/mL-10,00 0 unit/mL-1 % ear solution 11/17 completed Not Available Not Available Not Available acetaminoph en 325 mg tablet 11/17 completed Not Available Not Available Not Available doxycycline hyclate 100 mg capsule TAKE 1 CAPSULE BY MOUTH EVERY 12 HOURS FOR 10 DAYS 08/25 completed Not Available Not Available Not Available cefuroxime axetil 250 mg tablet 11/17 completed Not Available Not Available Not Available naproxen 375 mg tablet active Not Available Not Available Not Available clindamycin HCl 300 mg capsule TAKE 1 CAPSULE BY MOUTH EVERY 6 HOURS 02/17 completed Not Available Not Available Not Available ibuprofen 800 mg tablet TAKE 1 TABLET BY MOUTH EVERY 8 HOURS WITH FOOD NEEDED 04/12 completed Not Available Not Available Not Available Lidocaine Viscous 2 % mucosal solution 11/17 completed Not Available Not Available Not Available tizanidine 4 mg tablet active Not Available Not Available Not Available hydrocodone 5 mg-acetamin ophen 325 mg tablet TAKE 1 TABLET BY MOUTH EVERY 6 HOURS NEEDED 08/25 completed Not Available Not Available Not Available hydrocortis one 1 % topical ointment 03/23 completed Not Available Not Available Not Available ondansetron HCl 8 mg tablet TAKE 1 TABLET BY MOUTH EVERY 8 HOURS NEEDED active Not Available Not Available No t Available meloxicam 15 mg tablet 11/17 completed Not Available Not Available Not Available ceftriaxone 250 mg solution for injection 2014 active Not Available Not Available Not Avai lable clobetasol 0.05 % topical cream APPLY A THIN LAYER TO THE AFFECTED AREA(S) BY TOPICAL ROUTE 2 TIMES PER DAY 03/23 completed Not Available Not Available Not Available penicillin V potassium 500 mg tablet 11/17 completed Not Available Not Available Not Available metronidazo le 500 mg tablet Take 1 tablet twice a day by oral route after meals for 7 days. 2022 active Not Available Not Available Not Avai lable acetaminoph en 300 mg-codeine 30 mg tablet active Not Available Not Available Not Available ciprofloxac in 500 mg tablet 01/15 completed Not Available Not Available Not Available tramadol 50 mg tablet TAKE 1 TABLET BY MOUTH EVERY 6 HOURS NEEDED FOR PAIN 08/25 completed Not Available Not Available Not Available triamcinolo ne acetonide 0.1 % topical cream 03/23 completed Not Available Not Available Not Available ondansetron 8 mg disintegrat ing tablet Place 1 tablet every 8 hours by transling ual route as needed. 04/18 completed Not Available Not Available Not Available oxycodone-a cetaminophe n 5 mg-325 mg tablet TAKE 1 TABLET BY MOUTH EVERY 6 HOURS NEEDED FOR PAIN FOR 5 DAYS 08/25 completed Not Available Not Available Not Available ofloxacin 0.3 % ear drops 11/17 completed Not Available Not Available Not Available amoxicillin 875 mg tablet 11/17 completed Not Available Not Available Not Available Triple Antibiotic 3.5 mg-400 unit-5,000 unit/gram topical ointment APPLY TOPICALLY TO AFFECTED AREA THREE TIMES DAILY 08/25 completed Not Available Not Available Not Available ciprofloxac in 0.3 % eye drops 11/17 completed Not Available Not Available Not Available imiquimod 5 % topical cream packet APPLY TO THE AFFECTED AREA(S) TOPICALLT AT BEDTIME EVERY OTHER NIGHT 11/17 completed Not Available Not Available Not Available doxycycline monohydrate 100 mg capsule TAKE 1 CAPSULE BY MOUTH TWICE DAILY 11/17 completed Not Available Not Available Not Available cephalexin 500 mg capsule Take 1 capsule every 6 hours by oral route for 7 days. 03/23 completed Not Available Not Available Not Available ibuprofen 400 mg tablet TAKE 1 TABLET BY MOUTH THREE TIMES DAILY FOR 10 DAYS NEEDED FOR FEVER OR PAIN 08/25 completed Not Available Not Available Not Available omeprazole 20 mg capsule,del ayed release Take 1 capsule twice a day by oral route. 2022 active Not Available Not Available Not Avai lable hydrocortis one 2.5 % topical cream APPLY A THIN LAYER TO THE AFFECTED AREA(S) BY TOPICAL ROUTE 2 TIMES PER DAY 03/23 completed Not Available Not Available Not Available hydroxyzine HCl 25 mg tablet 03/23 completed Not Available Not Available Not Available polyethylen e glycol 3350 17 gram/dose oral powder 08/25 completed Not Available Not Available Not Available methylpredn isolone 4 mg tablets in a dose pack Day 1: Take 2 tablets PO TIDDay 2: 1 tablet before breakfast , 1 tablet after lunch, 1 tablet after dinner, and 2 tablets at bedtime.D ay 3: 1 tablet before breakfast , 1 tablet after lunch, 1 tablet after dinner, and 1 tablet at bedtime.D ay 4: 1 tablet before breakfast , 1 tablet after lunch, 1 tablet at bedtime.D ay 5: 1 tablet before breakfast and 1 tablet at bedtime.D ay 6: 1 tablet before breakfast 04/13 completed Not Available Not Available Not Available albuterol sulfate HFA 90 mcg/actuati on aerosol inhaler 11/17 completed Not Available Not Available Not Available ondansetron 4 mg disintegrat ing tablet DISSOLVE 1 TABLET ON THE TONGUE EVERY 8 HOURS FOR 7 DAYS NEEDED FOR NAUSEA OR VOMITING 08/25 completed Not Available Not Available Not Available fluticasone propionate 50 mcg/actuati on nasal spray,suspe nsion 11/17 completed Not Available Not Available Not Available naproxen 500 mg tablet TAKE 1 TABLET BY MOUTH TWICE DAILY WITH FOOD 08/25 completed Not Available Not Available Not Available amoxicillin 500 mg-potassiu m clavulanate 125 mg tablet 11/17 completed Not Available Not Available Not Available Tylenol 04/12 completed OTC Not Available Not Available Not Available Vitals Date Recorded Body height Body mass index (BMI) Body weight Heart rate Body temperature Oxygen saturation Oxygen saturation in Arterial blood by Pulse oximetry Systolic And Diastolic Provider Name and Address Organization Details Last Updated DateTime 3 165.1 cm 37.8 kg/m2 325423. 47 g 109 /min 98.5 [degF] 97 % 97 % 120/76 mm[Hg] Shabnam Cheng MA [facility] 15:44:27 Date Recorded Body height Body mass index (BMI) Body weight Provider Name and Address Organization Details Last Updated DateTime 02/09/2021 165.1 cm 34.8 kg/m2 65559.81 g Keyanna Peoples MA [facility] 02/09/2021 12:02:11 Date Recorded Body height Body mass index (BMI) Body weight Provider Name and Address Organization Details Last Updated DateTime 02/16/2021 165.1 cm 34.8 kg/m2 82960.81 g SARAH SERRA Attn: Accounting,[address] [place], [address], [facility] 02/16/2021 15:49:09 Date Recorded Body height Body mass index (BMI) Body weight Systolic And Diastolic Provider Name and Address Organization Details Last Updated DateTime 04/14/2023 165.1 cm 39 kg/m2 878780.77 g 118/74 mm[Hg] Mera Camp MA [facility] 04/14/2023 09:12:49 Social History Question Answer Notes LastModified by Organizat ion Details LastModified Time Tobacco Smoking Status Current Every Day Smoker Sherrie Lanie hearn, [facility] 12/23/2014 14:38:41 Do You Have An Advance Directive? No Information not available 11/18/2019 Is Blood Transfusion Acceptable In An Emergency? Yes Information not available 11/18/2019 What Is Your Level Of Caffeine Consumption? Occasional Information not available 11/18/2019 How Much Tobacco Do You Chew? None Information not available 11/18/2019 What Type Of Diet Are You Following? REGULAR Information not available 11/18/2019 Which Illicit Or Recreational Drugs Have You Used? Wai Information not available 11/18/2019 Education 10 Information no t available 11/18/2019 Live Alone Or With Others? With Others Information not available 11/18/2019 What Was The Date Of Your Most Recent Tobacco Screening? 08/25/2022 Information not available 08/25/2022 How Many Children Do You Have? 5 Information not available 11/18/2019 Performs Monthly Self-breast Exam? Yes Information no t available 11/18/2019 Do You Use Protection During Sex? No Information not available 11/18/2019 What Is Your Relationship Status? Single Information not available 11/18/2019 Seat Belts Used Routinely Yes Information not available 11/18/2019 Are You Sexually Active? Yes Information not available 11/18/2019 At What Age Did You Start Smoking Tobacco? 20 Information not available 11/18/2019 How Much Tobacco Do You Smoke? 0.5 PPD Information not available 11/18/2019 Do You Use Sunscreen Routinely? No Information not available 11/18/2019 Has Tobacco Cessation Counseling Been Provided? Yes Information not available 08/25/2022 On What Date Was Tobacco Cessation Counseling Provided? 08/25/2022 Information not available 08/25/2022 How Many Years Have You Smoked Tobacco? 13 Information not available 11/18/2019 Sex: Unknown Functional Status Question Answer Note LastModified by Organizat ion Details LastModified Time What is your level of alcohol consumption? None Information not available 11/18/2019 Are you currently employed? 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 Current user of electronic cigarettes 11/18/19 uses sometimes Information not available 11/18/2019 What is your exercise level? Heavy Information not available 11/18/2019 Mental Status None recorded. Family History Relationship Description Onset Age of this Age Resolved Age Notes LastModified by Organization Details LastModified Time Maternal Grandmother Diabetes mellitus [email or web address] Not available 2014 09:11:13 Maternal Grandmother Malignant tumor of stomach [email or web address] Not available 2014 09:11:13 Maternal Grandmother Malignant tumor of breast [email or web address] Not available 2014 09:11:13 Mother Malignant tumor of breast [email or web address] Not available 2014 09:11:13 Medical History Condition Response Anemia Y Arthritis Y Depression Y Gynecological History Statement/Question Response Menses Monthly N STIs/STDs N Age at Menarche 8 Current Control Method Hysterectom y LMP Unknown Sexually Active? Y Obstetrics History GPAL:G 3 P 3 0 0 3 Type Value Full Term 3 Living 3 Total 3 Immunizations Vaccine Type Date Status Note Provider Nam e and Address Organization Details Recorded Time MMR 8 completed Shabnam Cheng [place], [place] [facility] 08/25/2022 15:26:00 MMR 1 completed Shabnam Cheng [place] [facility] 08/25/2022 15:26:00 MMR 1 completed Shabnam Cheng [place] [facility] 08/25/2022 15:26:00 DTP 8 completed Shabnam Cheng [place] [facility] 08/25/2022 15:26:00 DTP 1 completed Shabnam Cheng [place] [facility] 08/25/2022 15:26:00 DTP 8 completed Shabnam Cheng [place] [facility] 08/25/2022 15:26:00 DTP 6 completed Shabnam Cheng [place] [facility] 08/25/2022 15:26:00 OPV 8 completed Shabnam Cheng [place] [facility] 08/25/2022 15:26:00 OPV 1 desiree Cheng [place] [facility] 08/25/2022 15:26:00 OPV 8 DAVID Flores[place] [facility] 08/25/2022 15:26:00 OPV 6 completed Shabnam [place] [facility] 08/25/2022 15:26:00 Td (adult), 2 Lf tetanus toxoid, preservative free, adsorbed 1 completed DAVID [place] [facility] 08/25/2022 15:26:00 Hep B, adolescent or pediatric 1 completed DAVID Ramos, [place] - [facility] 08/25/2022 15:26:00 Past Encounters Encounter ID Performer Location Encounter Start Date Encounter Closed Date Diagnosis/Indication Diagnosis SNOMED-CT Code Diagnosis ICD10 Code Diagnosis Note [id number] Roxann Franco [facility] Oskar Walker ([facility]) [address] [place] [address] 12/23/2014 14:15:47 12/23/2014 15:36:13 Gynecologic examination [id number] Pain in pelvis 91215980 Condyloma acuminata of vulva [id number] Roxann Franco SHILA Oskar Walker ([facility]) [address] [place] [address] 02/11/2015 16:27:12 02/12/2015 09:59:54 Acute pelvic inflammatory disease [id number] Pain in pelvis [id number] [id number] Roxann Franco SHILA Oskar Walker ([facility]) [address] [facility] [place] [address] 05/18/2015 09:00:43 05/18/2015 11:41:48 Acute pelvic inflammatory disease [id number] N73.9 Pain of breast 62041078 N64.4 [id number] SARAH SERRA ([facility]) [address] [place] [address] 12/09/2019 10:58:02 12/10/2019 08:13:29 Dyspareunia 40085504 N94.10 Dyspareuni a x 1 year. H/o endometrio sis s/p GEOVANNA, PID, and genital warts. DDx broad and to include infection, inflammato ry changes (such as lichen sclerosus) , trauma related, atrophy, adhesions, psychosoci al causes (such as vaginismus ), and neoplasm. Patient to come into clinic for in-person evaluation , scheduled for next week. Consider TVUS. [id number] SARAH SERRA ([facility] [employer]) [address] [place] [address] 01/16/2020 11:09:36 01/17/2020 07:33:40 Contact dermatitis 90525633 L23.7 History and PE consistent with a contact dermatitis from a plant, likely poison brad/oak. Has worsened since 3 weeks ago. Triamcinol one works but only provides mild relief, will start clobetasol BID on the extremitie s and the torso, hydrocorti sone BID for the face. Start medrol sendy. Given the diffuse nature of the rash and constant scratching , will start Keflex in case of a secondary skin infection. Advised to continue calamine lotion for symptomati c relief. RTC in 1 week. Periorbital edema 005222 00 H05.221 Likely due to contact dermatitis of the face. Small healing papule on R eyelid. Denied any trauma to the area, any changes in vision, pain, fevers. Start medrol dose pack and hydrocorti sone cream as above. Discussed with her that if swelling gets worse or she starts to have changes in vision to present to the ER. She is agreeable to this plan. [id number] SARAH SERRA [facility] ([facility]) [address] [place] [address] 03/23/2020 10:54:07 03/31/2020 15:01:24 Chronic back pain 975902265 M54.16 34 yo F with PMH of fractured vertebrae (L2-L3) presenting for chronic back pain, worsening x1 week and radiating into left leg. +straight leg raise L side. Start Medrol dose pack, advised to complete before beginning naproxen. Flexeril as needed for muscle spasms. XR full spine ordered, may need MRI. Practice back stretches and exercises. Continue activities as tolerated. Warm and cold compresses . RTC in 6 weeks. [id number] SARAH SERRA ([employer]) [address] [place] [address] 04/13/2020 08:34:06 04/14/2020 08:45:43 Degeneration of intervertebral disc 59444821 M51.9 XR cervical/t horacic/kenyatta mbosacral spine 04/03/20 noting degenerati ve disc disease without acute process. Lumbar radiculopathy 128 279015 M54.16 Left lower extremity numbness. Cervical radiculopathy 99937607 M54.12 Left upper extremity numbness. Chronic back pain 714304 002 M54.9 XR with DDD, no other acute process. Pt still reporting L upper and lower extremity radiculopa thy. F/u MRI. Continue naproxen and flexeril as needed. Referral to physical therapy. [id number] SARAH SERRA (Adult Med) [address] [place] [address] 02/09/2021 11:59:48 02/17/2021 16:20:10 Exposure to SARS-CoV-2 419759669 Z20.822 Patient exposed to niece over the weekend who recently tested positive for COVID. Advised pt that early testing can result in false negatives and that she is encouraged to monitor her symptoms closely and consider being retested 5 days after last exposure to ensure true negative. Immunization advised 310 027120 Z71.9 Pt unvaccinat ed for COVID. Encouraged future vaccinatio n. [id number] SARAH SERRA ([employer]) [address] [place] [address] 02/16/2021 15:46:27 02/17/2021 14:24:33 Suspected COVID-19 182824367 Z20.828 Symptoms highly suspicious for COVID-19 infection and positive contact. Advised pt to go get tested and quarantine . Continue OTC Tylenol for headaches/ pain/fever s. ER precaution s discussed. Vaccinatio n highly encouraged . [id number] SARAH SERRA (Adult Med) [address] [place] [address] 08/25/2022 15:22:53 09/13/2022 13:39:42 Gastroesophageal reflux disease without esophagitis 562650687 K21.9 Initiated omeprazole for GERD symptoms, instructed to take one capsule PO per day. Educated that cessation of alcohol and soda will help with symptoms. Harmful pa ttern of use of alcohol 61085178 F10.10 Patient expressed concern for her consumptio n of alcohol. She is consuming 5-13 shooters of hard alcohol per day and is distressed by her symptoms. She has withdrawal symptoms of tremor, nausea, vomiting, and diarrhea. Patient was informed that the safest way to quit alcohol consumptio n is in a self-[facility]. Patient informed that alcohol withdrawal is life threatenin g and should not be attempted alone at home. Pt agreeable. Referred to a rehabilita tion center. Pain of ri ght shoulder joint [id number] 0220267 M25.511 Patient fell approx. 1 month ago and landed on right shoulder. On exam, she has a decrease in ROM, pain with AROM, TTP over the anterior humeral head, and is swollen. Referred for XR of shoulder. Will follow up with results. Left flank pain 83645187 9 R10.9 Patient experienci ng pain and pressure in the left flank area that is accompanie d by increase urination, stress incontinen ce, sudden urges to urinate. No CVA tenderness or suprapubic tenderness on exam. UA with trace blood, otherwise negative. Sending urine for culture, will notify of results. Advised increased water intake. Major depr essive disorder 878625244 F32.9 Expressed concern for MDD when not drinking. PHQ 23 today. Pt denies active SI, intent or plan. Urgent referral to psychiatry placed. Suicide hotline and ER precaution s discussed. Acute bila teral otitis media 338728807 H66.93 Bilateral AOM noted on exam, abx prescribed . Instructed to take the full course. RTC if symptoms do not improve. Obesity 600888774 E66.9 BMI 37.8. Educated on healthy lifestyle and regular exercise. [id number] SARAH SERRA ([employer]) [address] [place] [address] 04/14/2023 08:56:39 04/19/2023 13:46:47 Hydrosalpinx 19482446 N70.[address] abd and US in ER on 04/12. Also noted on US in 2014. S/p hysterecto my in 2014. Possible chronic condition. Venereal d isease screening 617718700 Z11.3 Routine screening, safe sex practices discussed. Alcohol dependence 57057 003 F10.20 Discussed in detail, pt declines rehab referral today. ER precaution s discussed. Low back p ain co-occurrent and due to bilateral sciatica [id number] 7148149 M54.41 M54.42 Bilateral low back pain with radiation down bilateral legs. +straight leg test bilaterall y. Discussed exercises, activities as tolerated, and continuing with NSAIDs/Tyl enol. Refer to PT if no improvemen t. Complex cy st of right ovary [id number] 0911497 N83.291 ER visit on 04/12 for worsening back pain, BLQ abdominal pain, n/v revealed multiple hemorrhagi c cysts with enlarged R ovary and L hydrosalpi nx on US and CT Abd. No family history of ovarian cancer.- Referral sent to neurology nurse surgery for possible diagnostic laparotomy - Repeat US ordered to be done in 1 month, if not already seen by Outreach Counselor surgery.- ER/torsion precaution s discussed Nausea and vomiting 1692 1999 R11.2 Possibly multifacto rial from alcohol dependence , NSAID use, GERD, and acute pain. Continue with Zofran prn. Start daily PPI. Discussed alcohol cessation and diet modificati ons. Health Concerns Section Related Observation LastModified by Organization Detai ls LastModified Time None Recorded Concern Status LastModified by Organization Details LastModified Time None Recorded Advance Directives Directive N: Payers Insurance Date Sequence Insurance Name Policy Number Policy Hanson Covered Member ID Hanson Member ID Guarantor Name 04/20/2023 1 [facility] ON OR AFTER 12/17/20 (MEDICAID REPLACEMENT - HMO) Merari Bone [id number] Desire Plater Helper 08/25/2022 1 [facility] PRIOR TO 12/17/2020 (MEDICAID REPLACEMENT - HMO) Merari Bone [id number] Desire Plater Helper Notes Date Note Type Note Provider Name and Address Organization Details Recorded Time 04/13/2020 text/html Back PainReporte d bypatient.Location :pain radiating to the legs(and arm, on the left side) Severity:worsening ;pain level 10/10;interference with sleep;interference with work Duration:chronic Onset/Timing:recur rent episode Context:prior back problems Associated Symptoms:no fever; no weak limbs; no incontinence; no shortness of breath;numbness of the legs/feet 34yo F with PMH of fractured vertebrae (L2-L3) presenting for f/u for chronic back pain and XR results. Last visit at beginning of March pt was started on Medrol dose pack, Flexeril, and Naproxen. She notes minimal relief with medications. She is still endorsing numbness and tingling down left arm and leg. Back pain is worst in cervical and lumbar regions. SARAH SERRA Attn: [address] [facility], [place], [address], [facility] 04/13/2020 16:52:38 02/09/2021 text/html 35yo F presents via phone for COVID testing. Pt had recent covid exposure, states she saw her niece/nephew over weekend and her niece just tested positive for COVID and is now hospitalized. Pt states that her daughter has also been sick the last few days and is to be tested today. Pt is unvaccinated. She denies all symptoms at this time. SARAH SERRA Attn: Accounting[address] [facility], [place], [address], [facility] 03/31/2021 21:03:52 02/16/2021 text/html 35yo F presents via phone for headache follow up. She states she was experiencing frontal headache a couple of days ago. Headache progressed to back of head and was pounding and stabbing in nature. She went to ED on 02/10/[address] Received migraine cocktail with relief of symptoms. She has been experiencing headaches daily since. She also reports lost of taste and smell, decreased appetite, cough, rhinorrhea, diarrhea, nausea. Pt has not received the covid vaccine. Her daughter recently tested positive for COVID19. Denies fever, SOB, mental status changes, somnolence. SARAH SERRA Attn: Accounting[address] [facility], [place], [address], [facility] 02/17/2021 16:44:32 08/25/2022 text/html Merari Bone is a 36 y/o obese female who presents for concerns of alcohol consumption, right shoulder pain, left ear pain and drainage, and kidney pain. Merari stated that she began drinking 1-1.5 years ago. She currently drinks 5-13 shooters per day, and she has been drinking that amount daily since she began drinking. She has not tried to quit drinking on her own, but she did have a one week period of drinking less shooters per day, and notes that she felt depressed. When she is not drinking, she reports diarrhea, tremors, nausea, and vomiting. She denies headaches or seizures. She also noted that she has had an increase in reflux since she began drinking. Patient states that she has been experiencing kidney pain bilaterally. She notes that it is worse on the left side. She feels like there is an increase in pressure. She has been urinating more frequently and with more urgency, and is experiencing stress incontinence. She denies pain with urination, blood in the urine, dark or cloudy urine, and fevers. Patient states that she fell about one month ago due to ice and landed on her right shoulder. She has experienced pain since then that has gotten worse in severity. The pain now travels up her neck. She feels like she has a decrease ROM and swelling. She tries ibuprofen and tylenol but has had no pain relief. Patient also states that she is having L ear pain. She was seen for an ear perforation six months ago and received topical drops and oral antibiotics. She has noticed a pus-like discharge coming from her right ear, hearing loss, and dizziness. Her right ear also feels full and she has noticed a decrease in hearing in that ear as well. She reports having a cough, congestion, and sinus issues with seasonal allergies but is not taking any daily allergy medications. Neeraj Rushing MD Attn: [address] [place], [address], [facility] 09/20/2022 16:48:29 04/14/2023 text/html 37 yo F with a history of hysterectomy 2015 and alcohol use disorder presents to the clinic for ER follow up. She presented to [facility] ER for worsening bilateral low back pain and daily n/v. Patient states she has chronic sharp shooting low back pain that worsened 1 month ago and now has radiation to RLQ and LLQ abdomen. Pain has greatly affected her sleep. Minimal benefit with alternating Tylenol and Ibuprofen. CT and US done in ER revealed mutliple complex hemorrhagic cysts of R ovary and L hydrosalpinx. Patient states neither pain or nausea has improved since then. Denies family history of ovarian cancer. Denies vaginal discharge, bleeding, dysuria, urinary frequency/urgency, weight loss, and hematuria. Cody Man MD Attn: [address] [place], [address], [place] [facility] 04/19/2023 14:29:00 OBGyn Episode No OBEpisode recorded.
--- OUTSIDE RECORDS SUMMARY | 2024-12-26 14:32 | XMS_ITS ---
Author Organization [facility] Address [address] [place] [address] Care Team Providers Care Signal Operator Linguist Name Role Phone Nova Coe Primary Care Provider [phone] Miguel Short [phone] REASON FOR VISIT Est Psych, MAR patient Social History Sex Assigned At : Social History Observation Description Sex Assigned At Female Encounters Encounter Location Date Provider Diagnosis [address] [address] 03/14/2024 Miguel Short Plan Of Treatment No Information Progress Notes * Jerel CLRAKEB:12/17 (38 yo F)Acc No.[id number]:03/14/2024 UNLOCKED PROGRESS NOTE Patient: Tk TOBINDANDY Merari Provider: Crystal Short DNP, SHWETA- :1985 A ge:38 Y S ex:Female Date:03/14/2024 Address:[address] [place], [place] Pcp:Nova Coe Subjective: * Chief Complaints: * 1 . Est Psych, MAR patient. * Medical History: Objective: * Vitals: Assessment: Plan: * Treatment: * * Electronic signature of Austin Short APRN, [id number] on 12/26/2024 at 02:31 PM CDT Sign off status: Pending * Provider: Crystal Short DNP, SHWETA-BC Date: 0 03/14/2024 Generated for Flores shepard/Imer/Rachel on: 0 12/26/2024 02:31 PM CDT
--- OUTSIDE RECORDS SUMMARY | 2024-12-26 14:32 | XMS_ITS | Patient Health Record ---
Author Organization [facility] Address [address] [place] [address] Care Team Providers Care Kitchen Cleaner Name Role Phone Nova Coe Primary Care Provider Bhavik Coughlin Unavailable [phone] Cordelia Preciado Unavailable [phone] Miguel Short Unavailable [phone] Allergies Allergen (clinical drug ingredient) Drug/Non Drug Allergy documented on EMR Reaction Allergy Type Onset Date Status Substance with sulfonamide structure and antibacterial mechanism of action (substance) Sulfa Antibiotics Unknown Drug Allergy Active Results Component Value Reference Range Notes 12 Panel Urine Drug Screen Reviewed date:03/04/2024 01:09:20 PM Interpretation: Performing Lab: Notes/Report: THC POS CHRIS neg MOP (OPI) neg AMP neg MET neg BAR neg BZO POS MDMA neg MTD neg OXY neg PCP neg BUP neg Reason For Referral No Information Medications Medication SIG (Take, Route, Fr equency, Duration) Notes Start Date End Date Status Naltrexone HCl 50 MG 0.5 tablet Orally O nce; Duration: 1 days 03/04/2024 Active Thiamine HCl 250 MG as directed Orally Active Vivitrol 380 MG as directed Intramus cular every 28 days 03/04/2024 Active hydrOXYzine HCl 25 MG 1 tablet as needed Active Methocarbamol 750 MG 1 tablet Orally every 4 hrs Active Folic Acid 1 MG 1 tablet Orally Once a day Active Social History Tobacco Use: Social History Observation Description Date Details (start date - stop date) Current Smoker NA - NA Sex Assigned At : Social History Observation Description Sex Assigned At Female Tobacco Control (Standard) Question Answer Notes Tobacco use: Current smoker How many cigarettes a day do you smoke? 11-20 Problems Problem Type SNOMED Code ICD Code Onset Dates Problem Status W/U Status Risk Notes Problem Tobacco user (070803144) Nicotine dependence, unspecified, uncomplicated (F17.200) Active confirmed Problem Alcohol use disorder (0365342241) Alcohol use disorder (F10.99) Active confirmed Problem Obesity (BMI 30-39.9) (E66.9) Active confirmed Vital Signs Heart Rate 90 /min 03/04/2024 Temperature 98.8 degrees Fahrenheit 03/04/2024 Respiratory Rate 16 /min 03/04/2024 Oximetry 98 % 03/04/2024 Blood pressure diastolic 72 mm Hg 03/04/2024 Height 5ft5in in 03/04/2024 Blood pressure systolic 124 mm Hg 03/04/2024 Weight 233.0 lbs 03/04/2024 BMI 38.77 kg/m2 03/04/2024 Encounters Encounter Location Date Provider Diagnosis [address] [place] [address] 03/04/2024 Nova Coe Alcohol use disorder F10.99 ; Obesity (BMI 30-39.9) E66.9 ; Nicotine dependence, unspecified, uncomplicated F17.200 ; Exposure to potential infection Z20.9 and Nutritional counseling Z71.[address] [address] 03/05/2024 Cordelia Preciado [address] [facility] [place] [place] [address] 03/04/2024 Cordelia Preciado [facility] [address], [place] [address] 03/05/2024 Nova Coe [facility] [address] [address] 03/05/2024 Cordelia Preciado [address] [address] 03/11/2024 Cordelia Preciado Assessments Encounter Date Diagnosis (ICD Code) Assessment Notes Treatment Notes Treatment Clinical Notes Section Notes 03/04/2024 Alcohol use disorder (ICD-10 - F10.99) 03-04-24 1355 Per Marc Coe APRN start Naltrexone 25mg table self-administer under the supervision of Delia He RN. 03-04-24 1430, Patient denies any side effects to the Naltrexone, reported to Marc Coe APRN, and may go ahead with first Vivitrol injection, Delia He RN 03-04-24 1440 Patient received first Vivitrol injection, Delia He RN 03-04-24 1445, Patient denies any side effects from the first Vivitrol injection, reported to Marc Coe APRN, and may be discharged, Delia He RN 03/04/2024 Obesity (BMI 30-39.9) (ICD-10 - E66.9) 03/04/2024 Nicotine dependence, unspecified, uncomplicated (ICD-10 - F17.200) 03/04/2024 Exposure to potential infection (ICD-10 - Z20.9) 03/04/2024 Nutritional counseling (ICD-10 - Z71.3) 03/04/2024 Other Discussed medication side effects, adverse effects, risks, benefits, as well as interactions. Encouraged non-use of alcohol. Notify provider if having a procedure that may require pain medication. Has Vivitrol alert bracelet and wallet card. Carry written information with you at all times to alert healthcare providers that you are taking Vivitrol. Recommend participation in recovery groups, counseling services. Agrees to return to office in 28 days for next injection. Contact office with any questions or concerns. Plan Of Treatment No Information Insurance Providers Payer Name Payer Address Payer Phone Subscriber Number Group Number Insured Name Patient Relationship to Insured Coverage Start Date Coverage End Date [facility] Attn Claims Department [address] [place] [address] [id number] Merari Rowe Self - patient is the insured 4 Medications Administered Medication Instructions Date of Administration Dosage Notes Vivitrol 03/04/2024 380 mg Delia He RN 03/04/2024 03:18:27 PM CDT >Pt tolerated well Medical (General) History Medical History History ICD Code Alcohol Use Disorder Surgical History Surgery Date(Month/Year) Partial Hysto (only ovaries remaining) 2 009 Knee Surg Both Knees Tubes in Ears Hospitalization History Reason Date(Month/Year) Detox x1 [facility] 02/2024
--- OUTSIDE RECORDS SUMMARY | 2024-12-26 14:32 | XMS_ITS | Referral Summary ---
Author Organization [facility] Address [address] [place] [address] Care Team Providers Care Housekeeper And Laundry Assistant Name Role Phone No, Physician Primary Care Provider [phone] Allergies Active Allergy Reactions Criticality Noted Date Comments Codeine Hives Reaction: Hives, Ibuprofen Hives Reaction: Hives, Ketorolac Sulfa (Sulfonamide Antibiotics) Sulfanilamide Hives Reaction: Hives, Tramadol Hives Reaction: hives, Medications HYDROcodone-yocasta taminophen (NORCO) 5-325 mg per tabletIndicatio ns:Pain Take 1-2 tablets by mouth every 4 (four) hours as needed for pain Do not exceed 8 tablets/day. 20 tablet 01/22/2024 Active Social History Tobacco Use Types Packs/Day Years [...] on file Legal Sex Female 2:28 AM STORE HAND Gender Identity Not on file Sexual Orientation Not on file Last Filed Vital Signs Vital Sign Reading [...] 01/22/2024 5:57 AM CDT Plan of Treatment Not on file Insurance [facility] Care Teams Housekeeper And Laundry Assistant Relationship Specialty Start Date End Date No, Physician PCP - General 01/22/24
--- OUTSIDE RECORDS SUMMARY | 2024-12-26 14:32 | XMS_ITS | Clinical Summary ---
Author Organization [facility] Address [address] [place] [address] Phone Care Team Providers Care Machine Crater Name Role Phone Provider, None Primary Care Provider Unavailabl e Allergies Active Allergy Reactions Criticality Noted Date Comments Codeine Hives 09/05/2018 Reaction: Hives, Ibuprofen Hives 09/05/2018 Reaction: Hives, Ketorolac Unknown 09/05/2018 Sulfa Antibiotics Hives 08/05/2018 Tramadol Hives 09/05/2018 Reaction: hives, Medications * This document contains information received from the source organization and may not represent a complete record from that organization. folic acid (FOLVITE) 1 MG Tablet Take 1 Tablet by mouth daily. 30 Tablet 03/04/2024 Active Multivitamin-Mi nerals (multiple vitami/antioxid ants) Tablet Take 1 Tablet by mouth daily. 03/04/2024 Active thiamine (VITAMIN B1) 100 MG Tablet Take 1 Tablet by mouth daily. 30 Tablet 03/04/2024 Active hydrOXYzine (ATARAX) 50 MG Tablet Take 1 Tablet by mouth every 6 hours as needed for Anxiety (For mild anxiety - patient reported scale of 1-4.) for up to 15 doses. 15 Tablet 03/03/2024 Active methocarbamol (ROBAXIN) 750 MG Tablet Take 1 Tablet by mouth every 8 hours as needed for Other (For muscle aches) for up to 15 doses. 15 Tablet 03/03/2024 Active Active Problems Problem Noted Date Diagnosed Date Alcohol withdrawal 02/29/2024 Immunizations Immunization Administration Dates Next Due DTP Vaccine 01/10/1991, 8,11/26/1987,1985 Hepatitis B Vaccine, Pediatric/adolescent 01/17/2001 MMR Vaccine 02/23/1991,01/10/1991,11/26/1987 OPV 01/10/1991, 8,11/26/1987,1985 TD VACCINE 01/17/2001 Social History Tobacco Use Types Packs/Day Years Used Date Smoking Tobacco: Every Day Cigarettes Smokeless Tobacco: Never [facility] Utilities Answer Date Recorded In the past 12 months has [employer] electric, gas, oil, or water company threatened to shut off services in your home? Yes 04/04/2024 Social Connection and Isolation Panel Answer Date Recorded In a typical week, how many times do you talk on the phone with family, friends, or neighbors? More than three times a week 04/04/2024 How often do you get togethe r with friends or relatives? Once a week 04/04/2024 How often do you attend [facility] or [facility] services? Never 04/04/2024 Do you belong to any clubs o r organizations such as restorationist groups, unions, fraternal or athletic groups, or school groups? No 04/04/2024 How often do you attend meet ings of the clubs or organizations you belong to? Never 04/04/2024 Are you , , di vorced, , never , or living with a partner? Never 04/04/2024 AUDIT-C Answer Date Recorded Q1: How often do you have a drink containing alcohol? Never 04/04/2024 Q2: How many drinks containi ng alcohol do you have on a typical day when you are drinking? Patient does not drink Q3: How often do you have si x or more drinks on one occasion? Never 04/04/2024 Overall Financial Resource Strain (CARDIA) Answe r Date Recorded How hard is it for you to pa y for the very basics like food, housing, medical care, and heating? Hard 04/04/2024 [facility] - Occupational Stress Questionnaire Answer Date Recorded Do you feel stress - tense, restless, nervous, or anxious, or unable to sleep at night because your mind is troubled all the time - these days? Very much 04/04/2024 Exercise Vital Sign Answer Date Recorde d On average, how many days pe r week do you engage in moderate to strenuous exercise (like a brisk walk)? 3 days 04/04/2024 On average, how many minutes do you engage in exercise at this level? 60 min 04/04/2024 Hunger Vital Sign Answer Date Recorded Within the past 12 months, y ou worried that your food would run out before you got the money to buy more. Often true 04/04/20 24 Within the past 12 months, t he food you bought just didn't last and you didn't have money to get more. Often true 04/04/2024 PRAPARE - Transportation Answer Date Re corded In the past 12 months, has l ack of transportation kept you from medical appointments or from getting medications? Yes 03/19 In the past 12 months, has l ack of transportation kept you from meetings, work, or from getting things needed for daily living? Yes 04/04/2024 Housing Stability Vital Sign Answer Otoniel e Recorded In the last 12 months, was t here a time when you were not able to pay the mortgage or rent on time? Yes 04/04/2024 In the past 12 months, how m any times have you moved where you were living? 4 04/04/2024 At any time in the past 12 m [facility], were you homeless or living in a senior care (including now)? Yes 04/04/2024 Comments No Sex and Gender Information Value Date Recorded Sex Assigned at Not on file Legal Sex Female 12:00 AM CDT Gender Identity Not on file Sexual Orientation Not on file Last Filed Vital Signs Vital Sign Reading Time Taken Comments Blood Pressure 155/81 03/03/2024 4:00 AM CDT Pulse 70 03/03/2024 4:00 AM CDT Temperature 36.7 C (98 F) 03/03/2024 4:00 AM CDT Respiratory Rate 16 03/03/2024 6:50 AM CDT Oxygen Saturation 99% 03/03/2024 4:00 AM CDT Inhaled Oxygen Concentration - - Weight 103 kg (227 lb) 02/29/2024 3:57 PM CDT Height 165.1 cm (5' 5) 02/29/2024 3:57 PM CDT Body Mass Index 37.77 02/29/2024 3:57 PM CDT Plan of Treatment Health Maintenance Due Date Last Done Comments Hepatitis C Virus (HCV) Screening 1985 Human Papillomavirus (HPV) Immunization (1 - 3-dose series) 2000 DTaP/Tdap/Td Immunization (5 - Tdap) 01/18/2001 01/17/2001, 01/10/1991, 03/17/1988, Additional history exists Hepatitis B Immunization (2 of 3 - 3-dose series) 02/14/2001 01/17/2001 SARS-COV-2 Immunization ( season) 2024 Influenza Immunization (#1) 2025 Respiratory Syncytial Virus (RSV) Immunization (Adult) (1 - 1-dose 75+ series) 2060 Meningococcal Immunization (ACWY) Aged Out No longer eligible based on patient's age to complete this topic Pneumococcal Immunization Combined Aged Out No longer eligible based on patient's age to complete this topic Rotavirus Immunization Aged Out No lo nger eligible based on patient's age to complete this topic Interventions Community Resource Recommendations Community Resource Services Recommended Domains Addressed Status Status Reason/Outcome Date/Time [facility] Emergency Food Food Insecurity Recommended 06/24/2024 3:44 PM 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 Financial Resource Needs Financial Resource Strain, Utilities Recommended 06/24/2024 3:44 PM SEALING MACHINE OPERATOR [facility] Financial Resource Needs, Housing Insecurity Needs Financial Resource Strain, Utilities Recommended 06/24/2024 3:44 PM SEALING MACHINE OPERATOR from Last 12 Months Insurance MEDICAID [employer] Advance Directives * Full Code (Latest Code Status on File) Date Activated Date Inactivated Comments 03/01/2024 9:44 AM CPR-Full Treat ment: FULL ARREST: Attempt Resuscitation/CPR wit intubation and mechanical ventilation. PRE-ARREST: Use entire range of life support measures to stabilize the patient. Care Teams Machine Crater Relationship Specialty Start Date End Date Provider, None [place] PCP - General 03/01/24
--- OUTSIDE RECORDS SUMMARY | 2024-12-26 14:32 | XMS_ITS ---
Author Organization [facility] Address [address] [place] [address] Care Team Providers Care Sprayer Insecticide Name Role Phone Nova Coe Primary Care Provider Bhavik Coughlin [phone] REASON FOR VISIT Est Primary Social History Sex Assigned At : Social History Observation Description Sex Assigned At Female Encounters Encounter Location Date Provider Diagnosis [address] [address] 03/13/2024 Bhavik Coughlin Plan Of Treatment No Information Progress Notes * Jerel CLARKEB:[birth year]17 (38 yo F)Acc No.[id number]:03/13/2024 UNLOCKED PROGRESS NOTE Progress Notes Patient: Tk DAVIDSONMerari SCHWARZ Provider: Pk Coughlin :1985 A ge:38 Y S ex:Female Date:03/13/2024 Address:[address] [facility] Pcp:Nova Coe Subjective: * Chief Complaints: * 1 . Est Primary. * Medical History: Objective: * Vitals: Assessment: Plan: * Treatment: * * Electronic signature of Iliana Coughlin , [id number] on 12/26/2024 at 02:32 PM CDT Sign off status: Pending * Provider: Pk Coughlin Date: 0 03/13/2024 Generated for Flores Acuñag/Rachel on: 0 12/26/2024 02:32 PM CDT
--- OUTSIDE RECORDS SUMMARY | 2024-12-26 14:35 | XMS_ITS ---
Author Organization Unknown Plan of Treatment Description Planned Activity [facility] is a provider organization who partners directly with Health Plans and provides integrated primary care, behavioral health, and social work faculty member for an attributed population Letter encounter to patientTelephone encounter Dec 12, 2024Jul 2024 Patient Care team information Name Category Status Period Participants - - Proposed period not known -
[2024-12-26 14:40] VITALS: BP 121/86; PULSE 111; RESP 20; TEMP 36.7; O2SAT 100
--- NOTE | 2024-12-26 14:41 | ED.DENTAL ---
HPI - Dental/Oral General Chief complaint: Dental/Oral Stated complaint: left side ear / tooth pain Time Seen by Provider: 12/26/24 14:42 Source: patient Mode of arrival: ambulatory Limitations: no limitations History of Present Illness HPI Narrative: 38 y/o female presented for c/o left ear pain, onset 4 days. Also reports poor dentition throughout and admits to a broken tooth the left lower. States the pain might be coming from the tooth because it extends across the left side of the face and neck. Taking ibuprofen. Denies tinnitus, dizziness, n/v/d/f/c. Related Data Allergies Allergy/AdvReac Type Severity Reaction Status Date / Time Sulfa (Sulfonamide Allergy Mild HIVES Verified 12/26/24 14:37 Antibiotics) Review of Systems Review of Systems: CONSTITUTIONAL: Denies malaise, chills, or fever. EYES: Denies visual changes, redness, or discharge. ENT: Denies rhinorrhea, congestion, sinus pain, and sore throat. Reports ear pain CARDIOVASCULAR: Denies chest pain, palpitations, or edema. RESPIRATORY: Denies cough or dyspnea. GASTROINTESTINAL: Denies abdominal pain, nausea, vomiting, diarrhea SKIN: Denies rash or itching. MUSCULOSKELETAL: Denies myalgia. NEUROLOGIC: Denies headache. All systems reviewed & are unremarkable except as noted in HPI and below PMFSH Past Medical History Medical History History of 1 History of vaginal delivery x3 Recurrent otitis media Surgical History Surgical History History of hysterectomy History of tonsillectomy History of tympanostomy tube placement Family History Family History Mother No pertinent family history Grandparent Heart disease Stomach cancer Father Diabetes mellitus Social History Social History (Updated 02/08/22 @ 09:32 by Tiera Kamara) Social History: Caffeine-daily coffee Years smoked: 23 Smoking status: Current every day smoker Tobacco type: cigarettes Alcohol intake: current Alcohol use details: social Substance use: current Substance use type: marijuana Gender identity (if verbalized by the patient): Female Sexual Orientation (if Verbalized by the Patient): Straight or Heterosexual Spiritual care concerns: No Comments At time of signature, agree with nursing past medical, surgical, social and family history. There is no relevant family history pertinent to the presenting complaint Exam Narrative: GENERAL: Appears in pain, and in no acute distress. HEAD: Normocephalic EYES: conjunctivae clear ENT: Nares clear. Mucous membranes moist. Poor dentition throughout, broken teeth. No dental abscess noted. Right TM normal light reflex. Left TM erythematous, bulging and intact with purulent effusion; canal not erythematous, no drainage, no tragal tenderness. Left preauricular lymphadenopathy. Oropharynx not erythematous without lesions. no drooling, no hoarseness, no trismus, uvula midline. NECK: Supple. left anterior cervical lymphadenopathy CHEST: Clear to auscultation, breath sounds equal. No wheezing, rhonchi, rales, or stridor. No respiratory distress, speaks in full sentences. HEART: Regular rate and rhythm. No murmur heard. SKIN: Warm, dry, no rash. NEURO: Alert and oriented x3. PSYCH: Normal mood and affect Course Course Emergency Course: Patient is aware of diagnosis, understands and agrees to treatment plan. Anticipatory guidance given. Patient agrees to follow-up as directed and is aware of reasons to seek care at the emergency department. Portions of this record may have been created with voice recognition software Level of Care: Express Care Visit Vital Signs Vital signs: Reviewed MDM - Dental/Oral MDM Narrative Medical decision making narrative: Discussed physical exam findings c/w left AOM. Poor dentition throughout without notable abscess. Reviewed RX Advised supportive measures and signs/symptoms to go to the ER. Pt is appropriate for outpt treatment and f/u. Differential Diagnosis Differential diagnosis: Likely gingival abscess, dental caries, toothache, dental abscess, fracture of tooth, aphthous ulcer and other ( Otitis externa, TM rupture, cholesteatoma, foreign body, auricular perichondritis otitis media, bullous myringitis, mastoiditis, eustachian tube dysfunction) Discharge Plan Discharge Clinical Impression: Otitis media Patient Disposition: Home Condition: Stable Instructions: Antibiotic Form, Ear Infection (ED) Additional Instructions: Take antibiotics as directed. Motrin and Tylenol every 8 hours as needed to reduce fever, pain Please schedule a follow-up visit with your personal physician If your symptoms persist, change or worsen significantly, go to the emergency department for further evaluation. Patient Language: Mongolian Prescriptions: New ibuprofen 800 mg tablet 800 mg PO TID PRN (Reason: pain) Qty: 15 0RF amoxicillin-pot clavulanate 875-125 mg tablet 1 tablet PO Q12H 7 Days Qty: 14 0RF Follow-up/Referrals: PHYSICIAN,FIELD ENUMERATOR [Primary Care Provider] - Time of Disposition: 14:50
== END 2024-12-26 14:55 | disposition home or self-care (01) ==
PROVIDERS: Emergency Provider Nurse Practitioner Family
DX: H66.92 Otitis media, unspecified, left ear (principal); F17.210 Nicotine dependence, cigarettes, uncomplicated; F12.90 Cannabis use, unspecified, uncomplicated
CPT/HCPCS: 99213; G0463